=== PATIENT | female | born 1945 | race Two or more races ===

== ENCOUNTER 2019-12-12 06:36 | Day surgery (SDC) | payer OTHER ==
[~2019-12-12 06:36] MED LIST: ADULT LOW DOSE81 M1 PO; AVAPRO300 MG PO; HYDROCHLOROTH12.5 MG PO; LIPIT PO; MULTIPLE VITAM1 EACH PO; NORVASC5 MG PO; SYNTHROID175 MCG PO; TOPROL PO
[2019-12-12] MEDS ORDERED: PERCOCET 5-3251 EACH PO (11:02)
== END 2019-12-12 12:45 | disposition home or self-care (01) ==
LOC: CIR.AMB 06:36
PROVIDERS: ATTEND Surgery
DX: E21.0 Primary hyperparathyroidism (principal)

== ENCOUNTER 2024-10-19 11:06 | Outpatient (CLI) | payer OTHER ==
[~2024-10-19 11:06] MED LIST changes: +PERCOCET 5-3251 EACH PO
== END 2024-10-19 11:09 | disposition home or self-care (01) ==
LOC: MRI 11:06
PROVIDERS: ATTEND Physical Medicine & Rehabilitation
DX: M54.17 Radiculopathy, lumbosacral region (principal)
CPT/HCPCS: 72148

== ENCOUNTER 2025-01-21 09:59 | Outpatient (CLI) | payer OTHER | END 2025-01-21 10:00 | disposition home or self-care (01) | LOC: NUCLEAR 09:59 | PROVIDERS: ATTEND Internal Medicine Cardiovascular Disease | DX: I82.403 Acute embolism and thrombosis of unspecified deep veins of lower extremity, bilateral (principal); I87.2 Venous insufficiency (chronic) (peripheral) ==